=== PATIENT | female | born 1975 | race Caucasian/White ===

== ENCOUNTER 2017-01-02 09:40 | Day surgery (SDC) | payer OTHER ==
[2017-01-02] MEDS ORDERED: CEFAZOLIN 1 GM/D5W RTU 1 GM/50 ML RTUPB IV PRN (10:11)
[2017-01-02] MEDS ORDERED: BUPIVACAINE HCL 0.5 % INJ/PF 30 ML SDV ONE (10:53)
[2017-01-02] MEDS ORDERED: LIDOCAINE 2% INJ (20 MG/ML) 20 ML MDV ONE (10:53)
[2017-01-02] MEDS ORDERED: BUPIVACAINE INJ/PF LIPOSOME/PF 266 MG/20 ML SDV ONE (10:54)
[2017-01-02] MEDS ORDERED: MIDAZOLAM 2 MG/2 ML INJ ONE ×2 (11:19)
[2017-01-02] MEDS ORDERED: FENTANYL CITRATE INJ/PF 250 MCG/5 ML AMPULE ONE (11:19)
[2017-01-02] MEDS ORDERED: PROPOFOL INJ 200 MG/20 ML VIAL IV ONE (11:20)
[2017-01-02] MEDS: BACITRACIN INJ 50,000 UNIT VIAL ONE ×2 (12:16)
[2017-01-02] MEDS: NORMAL SALINE INJ/PF 0.9% 10 ML SDV ONE ×2 (12:16)
[2017-01-02] MEDS: POLYMYXIN B SULFATE INJ 500000 UNIT VIAL ONE ×2 (12:16)
[2017-01-02] MEDS ORDERED: DEXAMETHASONE SOD PHOSPHATE INJ 4 MG/1 ML VIAL ONE (12:32)
[2017-01-02] MEDS ORDERED: ONDANSETRON HCL INJ/PF 4 MG/2 ML SDV ONE (13:26)
[2017-01-02] MEDS ORDERED: GLYCOPYRROLATE INJ 0.4 MG/2 ML VIAL ONE (13:27)
--- NOTE | 2017-01-02 15:53 | SURGICARE OPERATIVE REPORT E ---
[facility] Operative Report NAME: JESSICA JASSO AGE: 41Y DATE OF SURGERY: 01/02/2017 ROOM: PREOPERATIVE DIAGNOSIS: Bunion of the first metatarsophalangeal joint of the right foot. 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 OPERATION: Cheilectomy/Simple bunionectomy with excision of hypertrophied bone, excision of cartilaginous erosion on the first metatarsal head with microfracture drilling technique first metatarsal head right foot. SURGEON: DIANE SANTOS DPM INK GRINDER: LEÓN YAO DPM PROCEDURE: On 01/02/2017, the patient was admitted to [facility] with complains of painful right foot, was taken to the operating room where following induction of intravenous sedation and regional block anesthesia, patient's right foot and leg were prepped and draped in the usual sterile manner. A tourniquet was placed proximal ankle malleoli, Esmarch was applied, tourniquet was inflated to the level of 250 mmHg for the purpose of hemostasis. Esmarch was removed and the following procedure performed: Prepped and draped in the dorsal aspect of the patient's first metatarsophalangeal joint where a 2 cm linear incision was placed medial to the longer extensor tendon and was deepened to the subcutaneous tissue and superficial fascia. All bleeding vessels were clamped, ligated, and bovied as necessary for hemostasis. Incision was made into the capsular and periosteal structures in a similar fashion. Skin incision was then freed from the osseous attachments and retracted medially and laterally for preservation. The longer extensor tendon was identified and retracted for preservation. At that time, there was noted to be hypertrophied bone on the first metatarsal head with multiple erosions dorsally in a significantly irregular shape utilizing. Utilizing handheld instrumentation, this hypertrophied bone was reduced as much as possible. At that time, utilizing a power sagittal saw, the remaining portion of the hypertrophied dorsal aspect of the first metatarsal head was then osteotomized and removed in total. At that time, further dissection was carried around medial and lateral freeing up the collateral ligaments. The joint was manipulated and the head of the first metatarsal was inspected. There was noted to be approximately 1 cm x 1 cm cartilaginous lesion on the lateral aspect of the first metatarsal head. At that time, utilizing sharp dissection, all loose cartilaginous substance was then removed. The margins were feathered and smoothed with a rotary bur. At that time, microfracture technique was then performed with 1.1 mm drill bit creating multiple drill holes in the cartilaginous erosion. The area was flushed with copious amounts of sterile antibiotic solution and inspected for any soft tissue or osseous debris with none being noted. Attention was directed to the base of the proximal phalanx where it was noted also an erosion on the lateral aspect of the base of the phalanx. This was then removed with hand instrumentation. All sharp osseous edges were rasped smooth. The area was then flushed with copious amounts of sterile antibiotic solution and inspected for any soft tissue or osseous debris. The joint was placed through a range of motion. There was noted to be no crepitus, no binding, no clicking. It was felt that range of motion was adequate at this time. Fluoroscopic studies revealed a somewhat lateral deviation of the joint, which would be expected due to the amount of bone that was resected on the first metatarsal head for the cartilaginous erosion. At this time a medial capsulorrhaphy was then performed to relieve some of the stress on the lateral portion of the joint and allow more fibrocartilage healing. At that time, bone wax was applied to all exposed medullary surfaces on the dorsal aspect of the first metatarsal head. At that time, the capsular and periosteal structures were then coapted and maintained with simple suture of 3-0 Vicryl. The attention was directed to the medial aspect of the first metatarsophalangeal joint where the vertical capsular incision was placed. The hallux was stabilized in a medial direction and then was sutured in horizontal mattress fashion with 2-0 FiberWire. The subcutaneous tissue was then coapted and maintained with simple suture of 4-0 Vicryl. Skin incision was then coapted and maintained with running subcuticular suture of 5-0 Vicryl. It should be noted that prior to the closure of the incision, Exparel was injected subcutaneously through the periwound utilizing approximately 7 mL. At that time, the wound was washed, dried, Steri-Strips were applied to the first metatarsal incisions and then sterile dressings consisting of Robert silk, 4 x 4's, Omar, Kerlix, and Coflex were applied to the patient's right foot. Tourniquet was rapidly deflated. Capillary filling time was noted to be instantaneous to all digits. The patient appeared to tolerate surgery and anesthesia well and left the OR in apparent good condition with all vital signs and was taken to the recovery room where further monitored by the Anesthesia Department. DICTATING PHYSICIAN: DIANE SANTOS DPM [id number] PHY#: [id number] ID: [id number] JOB#: [id number] ACCT: [id number] cc:DIANE SANTOS DPM > MTDD
--- NOTE | 2017-01-02 17:25 | RADIOLOGY REPORT (SQ) ---
EXAM DESCRIPTION: FOOT RIGHT 2 VIEWS; NO CHG FLUORO COMPLETED DATE/TIME: 01/02/2017 1:45 pm REASON FOR STUDY: RT FOOT BUNIONECTOMY M20.11 HALLUX VALGUS (ACQUIRED), RIGHT FOOT COMPARISON: None. FLUOROSCOPY TIME: 10 seconds 2 images saved to PACS. TECHNIQUE: Intra-operative images acquired during surgical procedure to evaluate progress. NUMBER OF IMAGES: 2 LIMITATIONS: None. FINDINGS: Two views of the right foot limited to the great toe without significant finding. IMPRESSION: IMAGE(S) OBTAINED DURING PROCEDURE. COMMENT: Quality ID [id number]: Final reports for procedures using fluoroscopy that document radiation exp osure indices, or exposure time and number of fluorographic images (if radiation exposure indices are not available) Please consult full operative report of the attending physician for description of the procedure. TECHNICAL DOCUMENTATION: JOB ID: [id number] 2007 [employer]- All Rights Reserved
== END 2017-01-02 15:00 | disposition home or self-care (01) ==
LOC: SC 09:40
PROVIDERS: ATTEND Preventive Medicine Undersea and Hyperbaric Medicine
PROC: 0QSQ0ZZ Reposition Right Toe Phalanx, Open Approach (ICD-10-PCS; 2017-01-02)
PROC: 0QSN0ZZ Reposition Right Metatarsal, Open Approach (ICD-10-PCS; principal; 2017-01-02 10:45)
DX: M20.11 Hallux valgus (acquired), right foot (principal); M89.371 Hypertrophy of bone, right ankle and foot; M19.071 Primary osteoarthritis, right ankle and foot; G43.909 Migraine, unspecified, not intractable, without status migrainosus; Z79.899 Other long term (current) drug therapy; Z87.891 Personal history of nicotine dependence
CPT/HCPCS: 73620; 28299; J2250; J3490 ×4; J0690; J1100; J3010; J2405; J2704; C9290; 01480

== ENCOUNTER → 2017-12-19 | Outpatient (CLI) | payer OTHER ==
--- NOTE | 2017-12-19 20:02 | WOMENS IMAGING REPORT ---
EXAM DESCRIPTION: 3D SCREENING MAMMO BILAT COMPLETED DATE/TIME: 12/19/2017 9:03 am REASON FOR STUDY: ROUTINE SCREENING; Z12.31 Z12.31 ENCNTR SCREEN MAMMOGRAM FOR MALIGNANT NEOPLASM O F CHARLIE COMPARISON: None. TECHNIQUE: Standard craniocaudal and mediolateral oblique views of each breast recorded using digita l acquisition and breast tomosynthesis. LIMITATIONS: None. FINDINGS: No masses, calcifications or architectural distortion. No areas of suspicion. Read with the assistance of CAD. .[facility] - R2 Cenova Version 1.3 .[facility] Imaging - R2 Cenova Version 1.3 .[facility] - R2 Cenova Version 2.4 .[facility] [place] - R2 Cenova Version 2.4 .[facility] - R2 Help Desk Representative Version 9.2 IMPRESSION: NORMAL MAMMOGRAM. BIRADS 1. BREAST DENSITY: b. There are scattered areas of fibroglandular density. BIRAD: 1 NEGATIVE RECOMMENDATION: ROUTINE SCREENING Please continue yearly bilateral screening tomosynthesis in December 2018 COMMENT: The patient has been notified of the results by letter per [place] requirements. Additional no tification policies are in place for contacting patient with suspicious or incomplete findings. Quality ID #225: The [employer] recommends an annual screening mammogram for women aged 40 years or over. This facility utilizes a reminder system to ensure that all patients receive reminder letters, and/or direct phone calls for appointments. This includes reminders for routine scr eening mammograms, diagnostic mammograms, or other Breast Imaging Interventions when appropriate. Th is patient will be placed in the appropriate reminder system. The [employer] (ACR) has developed recommendations for screening MRI of the breast s in certain patient populations, to be used in conjunction with mammography. Breast MRI surveillanc e may be appropriate for women with more than 20% lifetime risk of developing breast cancer as deter mined by genetic testing, significant family history of the disease, or history of mantle radiation f or Hodgkins Disease. ACR Practice Guidelines 2008. DBT Technology DBT is a type of tomographic mammography. With conventional mammography, overlapping breast tissue ma y make lesions difficult to detect, even with good compression. DBT uses an x-ray tube that rotates a round the breast, taking images at different angles. These images are then combined to create thin sl ices of the breast that the radiologist can view as a 3D reconstruction. The [employer] unit can perform full-field digital mammograms (2D imaging); or DBT (3D imaging); or both, in a combination mode that quickly performs both the mammogram and the tomosynthesis scan while the breast is still compressed. PQRS 6045F: Fluoroscopic imaging is not utilized for breast tomosynthesis. TECHNICAL DOCUMENTATION: FINDING NUMBER: (1) ASSESSMENT: (1) JOB ID: [id number] [employer]- All Rights Reserved Reading location - IP/workstation name: [facility]
== END ==
LOC: WI 08:32
PROVIDERS: ATTEND Nurse Practitioner
DX: Z12.31 Encounter for screening mammogram for malignant neoplasm of breast (principal)
CPT/HCPCS: 77063; 77067